=== PATIENT | female | born 1965 | race Caucasian/White ===

== ENCOUNTER 2020-02-05 15:56 | Emergency (ER) | payer MEDICARE, OTHER ==
[~2020-02-05] VITALS: Ht 157.5 cm; Wt 83.9 kg
[2020-02-05] MEDS ORDERED: PERPHENAZINE2 MG PO (16:14)
[2020-02-05] MEDS ORDERED: METFORMIN HCL500 MG (16:14)
[2020-02-05] MEDS ORDERED: GABAPENTIN300 MG PO (16:14)
[2020-02-05] MEDS ORDERED: ROPINIROLE HCL3 MG PO (16:14)
[2020-02-05] MEDS ORDERED: PREDNISONE20 MG PO (17:49)
[2020-02-05] MEDS ORDERED: ATIVAN1 MG PO (18:17)
--- NOTE | 2020-02-05 19:33 | EKG ---
[facility] [address] [place] [address] Signed Normal sinus rhythm Nonspecific ST and T wave abnormality Abnormal ECG No previous ECGs available Confirmed by EDDIE CLARKE MD ([id number]) on 02/05/2020 7:33:19 PM Electronically Signed By: EDDIE CLARKE MD 02/05/201932 PATIENT NAME: PARMJIT CARCAMO Electrocardiogram DATE OF : 65 PHYSICIAN: EDDIE CLARKE MD REPORT #: [id number] REPORT IS CONFIDENTIAL AND NOT TO BE RELEASED WITHOUT AUTHORIZATION
--- NOTE | 2020-02-06 17:39 | PATH ---
[facility] [address] [place], [place] [address] Signed ORDERING PHYSICIAN: Satya Arevalo MD PATIENT NAME: PARMJIT CARCAMO GENDER: Sera : 1965 SPECIMEN(S): No Source Given MOLECULAR PATHOLOGY RESULTS: SARS-CoV-2 Not Detected ADDITIONAL NOTES.: The [employer] Fusion SARS-CoV-2 Assay is a multiplex real-time PCR (RT-PCR) in vitro diagnostic test intended for the qualitative detection of RNA from SARS-CoV-2 from individuals who meet COVID-19 clinical and/or epidemiological criteria. In general, SARS-CoV-2 RNA can be detected during the acute phase of infection. Positive results indicate the presence of SARS-CoV-2 RNA. Clinical correlation with patient history and other diagnostic information is necessary to determine patient infection status. Positive results do not rule out bacterial infection or co-infection with other viruses. Negative results do not preclude SARS-CoV-2 infection and should not be used as the sole basis for patient management decisions. Negative results must be combined with other clinical observations, patient history, and epidemiological information. The [employer] Fusion SARS-CoV-2 Assay is not yet approved or cleared by the [place] FDA. When there are no FDA-approved or cleared tests available, and other criteria are met, FDA can make tests available under an emergency access mechanism called an Emergency Use Authorization (EUA). The EUA for this test is supported by the [employer] of Health and Human Service's (HHS's) declaration that circumstances exist to justify the emergency use of in vitro diagnostics for the detection and/or diagnosis of the virus that causes COVID-19. This EUA will remain in effect for the duration of the COVID-19 declaration justifying emergency of IVDs, unless it is terminated or revoked by FDA, after which the test may no longer be used. The [employer] Fusion SARS-CoV-2 Assay is for use only under EUA in US laboratories certified under the Clinical Laboratory Improvement Amendments of 1988 (CLIA) to perform high complexity tests. [facility] is certified under CLIA to perform high complexity PATIENT NAME: PARMJIT CARCAMO PATHOLOGY DATE OF : 65 REPORT #: [id number] PHYSICIAN: COLE ALMARAZ PCP: EMILIA RICK REPORT IS CONFIDENTIAL AND NOT TO BE RELEASED WITHOUT AUTHORIZATION [address] [address] Signed clinical laboratory testing. PERFORMING LABORATORY.: Molecular testing was performed by [facility] [address] [place], [place] [address] [address] (Can Vacuum Tester: Héctor Villa D.O.; CLIA#: [id number]) Diagnostician: System Interface Pathologist Electronically Signed 02/06/2020 Copies: ~ PATIENT NAME: PARMJIT CARCAMO PATHOLOGY DATE OF : 65 REPORT #: [id number] PHYSICIAN: COLE ALMARAZ PCP: EMILIA RICK REPORT IS CONFIDENTIAL AND NOT TO BE RELEASED WITHOUT AUTHORIZATION
== END 2020-02-05 18:21 | disposition home or self-care (01) ==
LOC: ED 15:56
DX: J44.9 Chronic obstructive pulmonary disease, unspecified (principal); E11.9 Type 2 diabetes mellitus without complications; F32.9 Major depressive disorder, single episode, unspecified; F17.200 Nicotine dependence, unspecified, uncomplicated; Z20.828 Contact with and (suspected) exposure to other viral communicable diseases; Z88.0 Allergy status to penicillin; Z79.899 Other long term (current) drug therapy; Z79.84 Long term (current) use of oral hypoglycemic drugs
CPT/HCPCS: 71045; 80053; 85025; 93005; 93010; 96374; 96375; 99285-25; J1100; J2060